=== PATIENT | female | born 1950 | race African-American/Black ===

== ENCOUNTER 2019-09-25 19:00 | Emergency (ER) | payer MEDICARE ==
[~2019-09-25] VITALS: Ht 175.3 cm; Wt 145.1 kg
[2019-09-25 20:05] VITALS: BP 111/54
[2019-09-25 20:13] LABS: BILIRUBIN,URINE SMALL (NEG); CLARITY,URINE CLEAR; COLOR,URINE YELLOW; NITRITE,URINE NEGATIVE (NEG); PROTEIN,URINE 30 mg/dL (NEG-TRACE)
[2019-09-25 20:17] LABS: SQUAMOUS EPITHELIAL CELL,UR FEW /LPF
[2019-09-25 20:18] LABS: AMORPHOUS SEDIMENT,UR PRESENT /HPF; BACTERIA,URINE 0 /HPF (0-FEW); RBC,URINE RARE /HPF (0-2); WBC,URINE RARE /HPF (0-4)
[2019-09-25] MEDS ORDERED: IPRATRPIUM/ALBUTEROL 0.5/2.5MG 3 ML NEBU. NEB ONE ×2 (20:30→23:45)
[2019-09-25 20:56] LABS: INFLUENZA A PATIENT NEGATIVE (NEGATIVE); INFLUENZA B PATIENT NEGATIVE (NEGATIVE)
--- NOTE | 2019-09-25 23:24 | RAD ---
CHEST PA LATERAL Technique: PA and lateral views of the chest were obtained. Clinical History: Productive cough Comparison: None. Findings: The heart and pulmonary vasculature appear within normal limits. The lungs are clear. The pleural margins are clear. Impression: No acute chest process is seen. Electronically signed by: Milton Fabian III, MD (09/25/2019 11:21 PM) [facility]
[2019-09-25] MEDS ORDERED: PRED50TA PO (23:42)
[2019-09-25] MEDS ORDERED: ALBU2.5V8 IH (23:42)
[2019-09-25] MEDS ORDERED: predniSONE 20 MG TABLET PO ONE (23:45)
--- NOTE | 2019-09-26 03:34 | PHYS DOC ---
Past Medical History Past Medical History: A-Fib, Diabetes-Type II, Hypertension Past Surgical History: No Surgical History Alcohol Use: None Drug Use: None Adult General Chief Complaint Chief Complaint: FLU SYMPTOM HPI HPI Patient is a 69 year old AA female with of afib, hypertension, diabetes who presents with flulike symptoms. Patient reports nonproductive cough with wheezing, shortness of breath, occasional nausea with vomiting and diarrhea. Initially reports fever and chills which have since resolved. No abdominal pain, diarrhea. No other acute symptoms or complaints. [] Review of Systems Review of Systems ROS as per HPI All other systems were reviewed and found to be within normal limits, except as documented in this note. Current Medications Current Medications Current Medications Medications (Trade) Dose Ordered Sig/Rene Start Time Stop Time Status Last Admin Dose Admin Albuterol/ Ipratropium (Duoneb) 3 ml 1X ONCE 09/25/19 23:45 09/25/19 23:46 DC 09/26/19 00:00 3 ML Prednisone (Prednisone) 60 mg 1X ONCE 09/25/19 23:45 09/25/19 23:46 DC 09/25/19 23:52 60 MG Allergies Allergies Allergies Coded Allergies Type Severity Reaction Last Updated Verified No Known Drug Allergies 09/25/19 No Physical Exam Physical Exam Constitutional: Well developed, well nourished, no acute distress, non-toxic appearance. [] HENT: Normocephalic, atraumatic, bilateral external ears normal, oropharynx moist, no oral exudates, nose normal. [] Eyes: PERRLA, EOMI, conjunctiva normal, no discharge. [] Neck: Normal range of motion, no tenderness, supple, no stridor. [] Cardiovascular:Heart rate regular rhythm, no murmur [] Lungs & Thorax: Patient's nonlabored, coarse diminished breath sounds with bilateral wheezes[] Abdomen: Bowel sounds normal, soft, no tenderness. [] Skin: Warm, dry, no erythema. [] Back: No tenderness, no CVA tenderness. [] Extremities: No tenderness, no cyanosis, no clubbing, ROM intact, no edema. [] Neurologic: Alert and oriented X 3, normal motor function, normal sensory function, no focal deficits noted. [] Psychologic: Affect normal, judgement normal, mood normal. [] Current Patient Data Vital Signs Vital Signs Date Time Temp Pulse Resp B/P (MAP) Pulse Ox O2 Delivery O2 Flow Rate FiO2 09/26/19 00:01 98 Room Air 09/25/19 20:05 97.9 71 22 111/54 (73) 97.9 Lab Values Laboratory Tests Test 09/25/19 20:05 09/25/19 20:15 Urine Collection Type Unknown Urine Color Yellow Urine Clarity Clear Urine pH 5.0 Urine Specific [place] 1.020 Urine Protein 30 mg/dL (NEG-TRACE) Urine Glucose (UA) Negative mg/dL (NEG) Urine Ketones (Stick) Negative mg/dL (NEG) Urine Blood Negative (NEG) Urine Nitrite Negative (NEG) Urine Bilirubin Small (NEG) Urine Urobilinogen Dipstick 1.0 mg/dL (0.2 mg/dL) Urine Leukocyte Esterase Negative (NEG) Urine RBC Rare /HPF (0-2) Urine WBC Rare /HPF (0-4) Urine Squamous Epithelial Cells Few /LPF Urine Amorphous Sediment Present /HPF Urine Bacteria 0 /HPF (0-FEW) Urine Mucus Slight /LPF Influenza Type A Antigen Negative (NEGATIVE) Influenza Type B Antigen Negative (NEGATIVE) EKG EKG [] Radiology/Procedures Radiology/Procedures [Chest x-ray: Reviewed] Course & Med Decision Making Course & Med Decision Making Pertinent Labs and Imaging studies reviewed. (See chart for details) [Resolving flulike symptoms. No vomiting in the ED. Steroids and breathing treatment given with decreased wheezing. Patient is currently have an inhaler. Will treat asthma exacerbation] Dragon Disclaimer Dragon Disclaimer This electronic medical record was generated, in whole or in part, using a voice recognition dictation system. Departure Departure Impression: Primary Impression: Upper respiratory infection Additional Impression: Asthma exacerbation Disposition: 01 HOME, SELF-CARE Condition: GOOD Patient Instructions: Upper Respiratory Infection, Adult, [id number], Asthma, Acute Bronchospasm, Diarrhea, [id number] Additional Instructions: Please take medications as directed and Pepto-bismol as needed for darrhea. Follow-up with your PCP in 2-3 days for reevaluation. Return ot the ED if new or worsening symptoms. Scripts Albuterol Sulfate (Proair Hfa) 8.5 Gm Hfa.aer.ad 2 PUFF IH PRN Q4-6HRS PRN for wheezing for 21 Days, #1 INHALER 0 Refills Prov: GILSON GRIMES DO 09/25/19 Prednisone (PREDNISONE) 50 Mg Tablet 1 TAB PO DAILY, #5 TAB Prov: GILSON GRIMES DO 09/25/19 Problem Qualifiers GILSON GRIMES DO Sep 26, 2019 03:33
== END 2019-09-26 00:15 | disposition home or self-care (01) ==
LOC: ER 19:00
DX: J45.901 Unspecified asthma with (acute) exacerbation (principal); J06.9 Acute upper respiratory infection, unspecified; I48.91 Unspecified atrial fibrillation; E11.9 Type 2 diabetes mellitus without complications; I10 Essential (primary) hypertension
CPT/HCPCS: 71046; 81001; 87804; 94640; 99285; J7512; J7620